=== PATIENT | male | born 1960 | race American Indian/Alaskan Native ===

== ENCOUNTER 2018-06-20 15:06 | Emergency (ER) | payer OTHER ==
[2018-06-20] MEDS ORDERED: CATAPRES PO ONE (15:51)
[2018-06-20] MEDS ORDERED: NORCO 10/325 PO ONE (15:51)
--- NOTE | 2018-06-20 16:10 | Cat Scan Report ---
FINAL REPORT EXAM: CT HEAD/BRAIN WO CON HISTORY: headache, HTN, POSSIBLE BLEED TECHNIQUE: CT of the Head without IV contrast. PRIORS: None currently available. FINDINGS: Right caudate head bleed measures 2.0 x 1.6 cm with extension into the right lateral ventricle primar gris the right frontal horn. Trace layering blood noted within the right occipital horn of the lateral ventricle. Blood extends into the left frontal horn and the 3rd ventricle probably through the shawanda keon of [place]. Trace blood noted within the left 4th ventricle. Minimal 1.2 mm left midline shift noted. No hydrocephalus at this time. There is no evidence for acute ischemia. There is no mass. Age appropriate grant-white matter attenuation is noted. There is no calvarial fracture. The temporal bones demonstrate aerated mastoid air cells. The middle ears appear unremarkable. Qccf-dz-dvyalylg mucosal thickening in both ethmoid sinuses. Globes are intact. IMPRESSION: Right basal ganglia bleed with intraventricular extension. Minimal midline shift. No hydrocephalus. June 20, 2018 at 1309 PST: I discussed the findings over phone with Trevon Flaherty NP.
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
--- NOTE | 2018-06-20 16:31 | Emergency Department Report ---
Blank Doc - Documentation Documentation: Patient was initially seen and evaluated in [facility] by the mid-level. Patient rep orts a bitemporal headache 1 day (see PA note). Patient presents with uncontrolled hypertension and admits to noncompliance with his lisinopril times several months because he is "stubborn". CT head revealed a right basilar ganglia bleed with minimum 1.2 mm left midline shift. Patient's NIH stroke scale is 0 at this time. Patient received clonidine 0.2 mg and [place] 5/235 at 15:54 [facility] transfer service contacted Consult 4:40 pm: conference call with Dr Perdue (ICU attending) and Dr Tee (neurosurgery attending) both have accepted pt to [facility]. cardene drip initiated for blood pressure with goal for sbp 150 Dilaudid 0.5mg and zofran ordered pt started to have vomiting at 4:54pm after receiving dilaudid and zofran, shiela tional zofran given ekg: sinus rate 93, qrs axis 34, qrsd 100, no stemi critical care time: 30 min. - Assessment Assessment Interval: Baseline - Level of Consciousness 1a. Level of Consciousness: alert/keenly responsive - LOC Questions 1b. LOC Questions: answers both correctly - LOC Command 1c. LOC Commands: performs tasks correctly - Best Gaze 2. Best Gaze: normal - Visual 3. Visual: no visual loss - Facial Palsy 4. Facial Palsy: normal symmetrical movement - Motor Arm 5b. Motor Arm Right: no drift 5a. Motor Arm Left: no drift - Motor Leg 6b. Motor Leg Right: no drift 6a. Motor Leg Left: no drift - Limb Ataxia 7. Limb Ataxia: absent - Sensory 8. Sensory: normal - Best Language 9. Best Language: no aphasia - Dysarthria 10. Dysarthria: normal - Extinction and Inattention 11. Extinction/Inattention: no abnormality - Scoring Total Score: 0 Stroke Severity: No Stroke Symptoms
[2018-06-20] MEDS ORDERED: DILAUDID IV ONE (16:32)
[2018-06-20] MEDS ORDERED: ZOFRAN IV ONE ×2 (16:32→16:54)
[2018-06-20 16:46] LABS: Basophils # (Auto) 0.1 K/mm3 (0.0-0.1); Eosinophils # (Auto) 0.2 K/mm3 (0.0-0.4); Eosinophils % (Auto) 1.9 % (0.0-4.3); Hematocrit 44.8 % (35.5-45.6); Hemoglobin 15.1 gm/dl (11.8-15.2); Lymphocytes # (Auto) 1.9 K/mm3 (1.2-5.4); Lymphocytes % (Auto) 22.1 % (13.4-35.0); Mean Corpuscular HGB Conc 34 % (32-34); Mean Corpuscular Volume 92 fl (84-94); Monocytes # (Auto) 0.6 K/mm3 (0.0-0.8); Monocytes % (Auto) 6.6 % (0.0-7.3); Platelet Count 207 K/mm3 (140-440); Red Blood Count 4.86 M/mm3 (3.65-5.03); Red Cell Distribution Width 13.7 % (13.2-15.2)
[2018-06-20 16:55] LABS: INR 0.88 (0.87-1.13)
[2018-06-20 16:56] LABS: Partial Thromboplastin Time 26.4 Sec. (24.2-36.6)
[2018-06-20] MEDS ORDERED: CARDENE 50 MG in NACL 0.9% 250ML 230 ML IV SCH (17:00)
[2018-06-20 17:05] LABS: Alanine Aminotransferase 26 units/L (7-56); Albumin 4.4 g/dL (3.9-5); BUN/Creatinine Ratio 13; Blood Urea Nitrogen 10 mg/dL (9-20); Calcium 9.5 mg/dL (8.4-10.2); Hemolysis Index 35
[2018-06-20 17:59] VITALS: BP 169/105
== END 2018-06-20 17:30 | disposition other institution (70) ==
LOC: ED 15:06
DX: S06.309A Unspecified focal traumatic brain injury with loss of consciousness of unspecified duration, initial encounter (principal); I16.0 Hypertensive urgency; X58.XXXA Exposure to other specified factors, initial encounter; Y93.89 Activity, other specified; Y92.89 Other specified places as the place of occurrence of the external cause; Y99.8 Other external cause status
CPT/HCPCS: 36415; 70450; 80053; 84484; 85025; 85610; 85730; 86850; 86900; 86901; 93005; 93010; 96374; 96375; 99284; J1170; J2405; J7050

== ENCOUNTER 2018-07-21 19:24 | Emergency (ER) | payer OTHER ==
--- NOTE | 2018-07-21 19:43 | Emergency Department Report ---
Blank Doc - Documentation Documentation: C/O headache. Recently had a head bleed 06/20/18 and shunt placed 07/05/18. Was discharge from [facility]hab 07/17/18. Increase headache and increased sleepiness. Vomiting. This initial assessment diagnostic orders/clinical plan/treatment (s) is/Are subject change based on patient's health status, clinical progression and re- assessment by fellow clinical providers in the ED. Further treatment and work-up at subsequent clinical providers discretion. Patient/guardians urged not to elope from s their condition may be serious if not clinically assessed and managed. Inital order include:
[2018-07-21 20:34] LABS: Basophils % (Auto) 0.7 % (0.0-1.8); Eosinophils # (Auto) 0.2 K/mm3 (0.0-0.4); Eosinophils % (Auto) 3.4 % (0.0-4.3); Hematocrit 33.9 % (35.5-45.6); Hemoglobin 11.4 gm/dl (11.8-15.2); Mean Corpuscular HGB Conc 34 % (32-34); Mean Corpuscular Volume 92 fl (84-94); Monocytes # (Auto) 0.4 K/mm3 (0.0-0.8); Monocytes % (Auto) 8.8 % (0.0-7.3); Platelet Count 313 K/mm3 (140-440); Red Blood Count 3.68 M/mm3 (3.65-5.03); Red Cell Distribution Width 13.7 % (13.2-15.2)
[2018-07-21 20:51] LABS: Alanine Aminotransferase 30 units/L (7-56); Albumin 4.2 g/dL (3.9-5); BUN/Creatinine Ratio 15; Blood Urea Nitrogen 20 mg/dL (9-20); Calcium 9.9 mg/dL (8.4-10.2)
[2018-07-21 20:52] LABS: Hemolysis Index 0
--- NOTE | 2018-07-21 20:55 | Cat Scan Report ---
FINAL REPORT PROCEDURE: CT HEAD/BRAIN WO CON TECHNIQUE: Computerized tomography of the head was performed without contrast material. HISTORY: headache and vomiting shunt 07/05/18 COMPARISON: 06/20/2018 FINDINGS: There is interval placement of a left shunt catheter which is entering the cranial cavity through the left frontal bone and is terminating in the left frontal horn. Left lateral ventricle is decompresse d. There is an ill-defined hypodense lesion measuring about 1.6 x 0.8 centimeters located adjacent to shunt catheter involving the head of caudate nucleus. Previously noted hyperdense intraventricular b leed is no longer visualized. There is an ill-defined mixed density lesion involving right caudate nu cleus measuring 1.5 x 1.1 centimeters which represents interval evolution of intra cerebral hemorrhag e. There is no evidence of any acute intracranial hemorrhage. An old lacunar infarct involving anteri or limb right internal capsule is again noted. Posterior fossa structures are unremarkable. Cerebral sulci and ventricles are otherwise within normal limits for patient's age. Mild degree mucosal thicke tanner is noted involving the left maxillary sinus. Bilateral mastoid air cells are clear. Bones are in tact. Scalp is unremarkable. IMPRESSION: There is interval evolution of right periventricular hemorrhage without any evidence of new hemorrhag e. Old lacunar infarct right anterior limb internal capsule. Interval placement of left ventricular shunt catheter as described above with resolution of intravent ricular hemorrhage. A small ill-defined hypodense lesion involving head of left caudate nucleus most likely represents a resolved intracerebal hematoma.
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
[2018-07-21 23:42] VITALS: BP 102/63
== END 2018-07-22 00:38 | disposition left against medical advice (07) ==
LOC: ED 19:24
DX: R51 Headache (principal); R11.2 Nausea with vomiting, unspecified; R10.13 Epigastric pain; I10 Essential (primary) hypertension; E11.9 Type 2 diabetes mellitus without complications; Z86.73 Personal history of transient ischemic attack (TIA), and cerebral infarction without residual deficits; Z79.899 Other long term (current) drug therapy
CPT/HCPCS: 36415; 70450; 80053; 82962; 85025

== ENCOUNTER 2019-10-31 21:52 | Emergency (ER) | payer OTHER ==
--- NOTE | 2019-10-31 22:52 | Cat Scan Report ---
CT HEAD WITHOUT CONTRAST INDICATION : Left facial droop and weakness. Possible stroke. TECHNIQUE: Axial, coronal and sagittal CT imaging was performed from the skull apex through the skul l base without contrast. All CT scans at this location are performed using CT dose reduction for ALA RA by means of automated exposure control. COMPARISON: CT head without contrast from 07/21/2018. FINDINGS: PARENCHYMA: No mass, midline shift, hemorrhage, extraaxial collection or acute territorial infarctio n. Probable chronic microvascular ischemic changes are again seen along the periventricular white ma tter. There is a similar hypodensity along the left caudate that may represent sequela of an old sharmaine melinda. VENTRICLES: No acute abnormality. Stable positioning of the ventricular catheter. SOFT TISSUES: No significant abnormality of the included soft tissues/orbits. BONES: No acute osseous abnormality. SINUSES: No significant abnormality. ADDITIONAL FINDINGS: None. IMPRESSION: 1. No acute intracranial abnormality. 2. Additional findings as above. CRITICAL RESULT: Time of Discovery (ICT SECURITY SPECIALIST/CDT): 21:45 Time of Communication (ICT SECURITY SPECIALIST/CDT): 21:47 Licensed Practitioner Receiving Report: Dr. Hua Read Back Performed: Yes. Signer Name: Ranjith Espinosa MD Signed: 10/31/2019 10:48 PM Workstation Name: [id number]
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
[2019-10-31] MEDS ORDERED: valACYclovir 500 MG TAB PO ONE (23:04)
[2019-10-31] MEDS ORDERED: predniSONE 20 MG TAB PO ONE (23:04)
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
[2019-10-31 23:42] VITALS: BP 139/53
== END 2019-10-31 23:42 | disposition home or self-care (01) ==
LOC: ED 21:52
DX: G51.0 Bell's palsy (principal); I10 Essential (primary) hypertension; E11.9 Type 2 diabetes mellitus without complications; Z86.73 Personal history of transient ischemic attack (TIA), and cerebral infarction without residual deficits; Z98.890 Other specified postprocedural states; Z79.899 Other long term (current) drug therapy
CPT/HCPCS: 70450; 82962; 99284; J7512

== ENCOUNTER 2020-08-26 18:52 | Emergency (ER) | payer OTHER ==
--- NOTE | 2020-08-26 19:32 | Event Note ---
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 Patient states he was not exerting himself when the chest pain began. No history of prior [place]. Patient is not anticoagulated. General: Awake, appropriately interactive, no acute distress. Neck: Supple. Full range of motion intact. Cardiovascular: Regular rate and rhythm. Normal peripheral perfusion. Pulmonary: Clear to auscultation bilaterally. No respiratory distress. Patient is speaking normally without use of accessory muscles. Skin: No apparent rashes or lesions. Neurological: No facial asymmetry. Speech is clear. Follows commands. Patient is alert and oriented. Musculoskeletal: Moves all four extremities spontaneously with normal range of motion. Psych: Cooperative. Appropriate mood and affect. I have greeted and performed a focused rapid initial assessment of this patient. A comprehensive ED assessment and evaluation of the patient, analysis of all test results, and completion of the medical decision-making process will be conducted by additional ED providers. This initial assessment/diagnostic orders/clinical plan/treatment(s) is/are subject to change based on patients health status, clinical progression and re-assessment. Further treatment and workup at subsequent clinical provider's discretion. Patient/guardian urged not to elope from the ED as their condition may be serious if not clinically assessed and managed.
[2020-08-26 19:34] VITALS: BP 186/111
[2020-08-26 19:51] LABS: Basophils # (Auto) 0.1 K/mm3 (0.0-0.1); Basophils % (Auto) 0.9 % (0.0-1.8); Eosinophils # (Auto) 0.2 K/mm3 (0.0-0.4); Eosinophils % (Auto) 2.5 % (0.0-4.3); Hematocrit 40.9 % (35.5-45.6); Hemoglobin 13.5 gm/dl (11.8-15.2); Lymphocytes # (Auto) 2.4 K/mm3 (1.2-5.4); Lymphocytes % (Auto) 31.2 % (13.4-35.0); Mean Corpuscular HGB Conc 33 % (32-34); Mean Corpuscular Volume 95 fl (84-94); Monocytes # (Auto) 0.5 K/mm3 (0.0-0.8); Monocytes % (Auto) 6.2 % (0.0-7.3); Platelet Count 191 K/mm3 (140-440); Red Blood Count 4.33 M/mm3 (3.65-5.03); Red Cell Distribution Width 13.9 % (13.2-15.2)
[2020-08-26 20:01] LABS: INR 0.81 (0.87-1.13)
[2020-08-26 20:02] LABS: Partial Thromboplastin Time 25.3 Sec. (24.2-36.6)
[2020-08-26 20:08] LABS: Alanine Aminotransferase 18 units/L (7-56); Albumin 4.1 g/dL (3.9-5); BUN/Creatinine Ratio 16; Blood Urea Nitrogen 18 mg/dL (9-20); Calcium 9.2 mg/dL (8.4-10.2); Hemolysis Index 12
--- NOTE | 2020-08-26 20:17 | XRay Report ---
CHEST 2 VIEWS INDICATION / CLINICAL INFORMATION: chest pain/SOB. COMPARISON: None available. FINDINGS: SUPPORT DEVICES: None. HEART / MEDIASTINUM: No significant abnormality. LUNGS / PLEURA: No significant pulmonary or pleural abnormality. No pneumothorax. ADDITIONAL FINDINGS: The patient catheter extends down the left chest wall. IMPRESSION: 1. No acute findings. Signer Name: Bharath Colvin MD Signed: 08/26/2020 8:12 PM Workstation Name: [id number]
[2020-08-26] MEDS ORDERED: predniSONE 20 MG TAB PO ONE (21:00)
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
== END 2020-08-26 21:21 | disposition home or self-care (01) ==
LOC: ED 18:52
DX: J45.909 Unspecified asthma, uncomplicated (principal); I10 Essential (primary) hypertension; E11.9 Type 2 diabetes mellitus without complications; Z86.73 Personal history of transient ischemic attack (TIA), and cerebral infarction without residual deficits; Z79.899 Other long term (current) drug therapy
CPT/HCPCS: 36415; 71046; 80053; 83735; 84484; 85025; 85610; 85730; 93005; 99283; J7512

== ENCOUNTER 2020-11-19 20:04 | Emergency (ER) | payer OTHER ==
[2020-11-19 21:51] VITALS: BP 139/85
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
--- NOTE | 2020-11-19 22:34 | XRay Report ---
RIGHT FOOT 3 VIEW(S) INDICATION / CLINICAL INFORMATION: INJURY COMPARISON: None available. FINDINGS: BONES / JOINT(S): No acute fracture or subluxation. Mild midfoot arthrosis. SOFT TISSUES: Enthesopathy noted at the plantar fascia and Achilles tendon insertions. ADDITIONAL FINDINGS: None. Signer Name: Simon Hollingsworth MD Signed: 11/19/2020 10:29 PM Workstation Name: [id number]
== END 2020-11-19 23:35 | disposition home or self-care (01) ==
LOC: ED 20:04
DX: S99.921A Unspecified injury of right foot, initial encounter (principal); T14.8XXA Other injury of unspecified body region, initial encounter; M79.676 Pain in unspecified toe(s); I10 Essential (primary) hypertension; E11.9 Type 2 diabetes mellitus without complications; Z79.899 Other long term (current) drug therapy; Z86.73 Personal history of transient ischemic attack (TIA), and cerebral infarction without residual deficits; Z98.890 Other specified postprocedural states; X58.XXXA Exposure to other specified factors, initial encounter; Y93.89 Activity, other specified; Y92.89 Other specified places as the place of occurrence of the external cause; Y99.0 Civilian activity done for income or pay